=== PATIENT | female | born 1955 | race African-American/Black ===

== ENCOUNTER 2019-03-28 18:05 | Emergency (ER) | payer OTHER ==
[~2019-03-28] VITALS: Ht 170.2 cm; Wt 90.7 kg
[2019-03-28] MEDS ORDERED: MOBIC7.5 MG PO (19:39)
[2019-03-28] MEDS ORDERED: TRAMADOL 50 MG50 MG PO (20:00)
[2019-03-28] MEDS ORDERED: TEGRETOL XR200 MG PO (20:06)
[2019-03-28] MEDS ORDERED: GABAPENTIN 100100 MG (20:07)
[2019-03-28] MEDS ORDERED: FLONASE 0.05%50 MCG (20:07)
[2019-03-28] MEDS ORDERED: CRESTOR5 MG PO (20:07)
[2019-03-28] MEDS ORDERED: SERTRALINE HCL100 MG PO (20:07)
[2019-03-28] MEDS ORDERED: ZYRTEC10 M5 PO (20:07)
[2019-03-28] MEDS ORDERED: PREMPRO 0.3 MG1 EACH PO (20:08)
[2019-03-28 20:17] VITALS: BP 149/79
== END 2019-03-28 19:55 | disposition home or self-care (01) ==
LOC: ER 18:05
DX: S83.411A Sprain of medial collateral ligament of right knee, initial encounter (principal); M25.461 Effusion, right knee; F31.9 Bipolar disorder, unspecified; W18.39XA Other fall on same level, initial encounter; Y93.89 Activity, other specified; Y92.89 Other specified places as the place of occurrence of the external cause; Y99.8 Other external cause status

== ENCOUNTER 2019-04-01 14:50 | Inpatient (IN) | payer OTHER ==
[~2019-04-01] VITALS: Ht 170.2 cm; Wt 90.3 kg
--- NOTE | ~2019-04-01 | EMS ---
[facility] [address] [place] [address] EMS Patient Care Report Name: THEO PETERSON Room #: 523B-B ADM IN M.R.#: [id number] Admission: 04/01/19 Attend Phys: Hamzah Epps DO Discharge: Date of : 53 Report #: [id number] THIS REPORT FOR: //name// Report Transmitted: 04/02/2019 10:21 EMS Care Summary [place], [place]/[facility] Incident [id number] @ 04/01/2019 14:04 Incident Location [address] [place] [address] Patient THEO REED Female, 64 Years 1955 Patient Address [address] [place] [address] Patient History Bipolar II Disorder,Depression,Post Traumatic Stress Disorder (PTSD), Patient Allergies Adhesive Tape, Patient Medications Flonase, Neurontin, Zyrtec, Crestor, Sertraline, Gabapentin, Tegretol, Disposition Transported No Lights/[place] Dispatch Reason Psychiatric Problem/Abnormal Behavior/Suicide Attempt Transported To [facility] Narrative THE PATIENT WAS FOUND SITTING ON A BENCH ON THE FRONT POR[place] TALKING WITH POLICE. THE POLICE STATE THE PATIENT CALLED A CAREER SERVICES COORDINATOR WITH THE [facility] AND MADE STATEMENT ABOUT BEING "AT THE END OF HER ROPE" AND THREATENING TO WALK INTO TRAFFIC. THE PATIENT IS ALERT AND ORIENTED x4 AND MADE STATEMENTS TO EMS ABOUT IT "BEING BETTER IF SHE WAS ." THE PATIENT DENIES ANY OTHER COMPLAINTS. NO ABNORMALITIES WERE NOTED ON EXAM. NO CHANGES IN THE PATIENT'S CONDITION DURING TRANSPORT. THE PATIENT WAS MOVED TO [facility] [address] [place] [address] EMS Patient Care Report Name: THEO PETERSON Room #: 523B-B ADM IN M.R.#: [id number] Admission: 04/01/19 Attend Phys: Hamzah Epsp, DO Discharge: Date of : 53 Report #: [id number] BED 7 AT THE [facility] ER AND LEFT WITH THE SIDE RAILS UP AND LOCKED. CARE WAS TRANSFERRED TO THE ER NURSING STAFF. Initial Vitals @14:36P: 75,R: 16,BP: 131/74,CO: 5,SpO2: 98, @14:30P: 77,R: 18,BP: 135/83,Pain: 0/10,GCS: 15,CO: 2,SpO2: 99,Revised Trauma: 12, Assessments @14:19MENTAL:No Abnormalities,SKIN:No Abnormalities,HEENT:Head/Face: No Abnormalities,Eyes: No Abnormalities,Neck/Airway: No Abnormalities,LUNG SOUNDS:General: No Abnormalities,Left Upper: No Abnormalities,Right Upper: No Abnormalities,Left Lower: No Abnormalities,Right Lower: No Abnormalities,ABDOMEN:General: No Abnormalities,Left Upper: No Abnormalities,Right Upper: No Abnormalities,Left Lower: No Abnormalities,Right Lower: No Abnormalities,PELVIS//GI:No Abnormalities,EXTREMITIES:Left Arm: No Abnormalities,Right Arm: No Abnormalities,Left Leg: No Abnormalities,Right Leg: No Abnormalities,PULSE:Radial: 2+ Normal,NEURO:No Abnormalities, Impression Suicidal Ideation Procedures @14:19ALS AssessmentResponse: Unchanged Timeline 14:03,Call Received 14:03,Dispatch Notified 14:04,Dispatched 14:05,En Route 14:18,On Scene 14:19,At Patient 14:19,ALS Assessment,Response: Unchanged 14:30,BP: 135/83 M,PULSE: 77,RR: 18 R,SPO2: 99 Ox,ETCO2: ,BG: ,PAIN: 0,GCS: 15, 14:31,Depart Scene 14:36,BP: 131/74 M,PULSE: 75,RR: 16 R,SPO2: 98 Ox,ETCO2: ,BG: ,PAIN: ,GCS: , 14:46,At Destination 15:08,Call Closed Disclaimer v1.1 Copyright 2019 [employer] This EMS Care Summary contains data elements from the applicable legal record (which may be displayed differently). It is designed to provide pertinent information for the following purposes: continuity of care, clinical quality, and state data reporting. The complete legal record is available to ED staff and administrators of the receiving hospital in [employer]'s Patient Tracker. All data [facility] [address] [place] [address] EMS Patient Care Report Name: THEO PETERSON Room #: 523B-B ADM IN M.R.#: [id number] Admission: 04/01/19 Attend Phys: Hamzah Epps DO Discharge: Date of : 53 Report #: [id number] is provided "as is."
[~2019-04-01 14:50] MED LIST: CRESTOR5 MG PO; FLONASE 0.05%50 MCG; GABAPENTIN 100100 MG; MOBIC7.5 MG PO; PREMPRO 0.3 MG1 EACH PO; SERTRALINE HCL100 MG PO; TEGRETOL XR200 MG PO; TRAMADOL 50 MG50 MG PO; ZYRTEC10 M5 PO
[2019-04-01 14:51] VITALS: BP 134/77
[2019-04-01 15:53] LABS: URINE BILIRUBIN NEGATIVE (Negative); URINE BLOOD NEGATIVE (Negative); URINE CLARITY CLEAR; URINE COLOR YELLOW; URINE GLUCOSE-RANDOM* NEGATIVE (Negative); URINE KETONES NEGATIVE (Negative); URINE LEUKOCYTES-REFLEX NEGATIVE (Negative); URINE NITRITE-REFLEX NEGATIVE (Negative); URINE PROTEIN (DIPSTICK) NEGATIVE (Negative)
[2019-04-01 16:01] LABS: AMP/METHAMP Negative (Negative); BARBITURATES Negative (Negative); BENZODIAZEPINES Negative (Negative); COCAINE Negative (Negative); METHADONE Negative (Negative); OPIATES Negative (Negative); PCP Negative (Negative)
[2019-04-01 16:02] LABS: HEMATOCRIT 39.6 % (37.0-47.0); HEMOGLOBIN 13.9 gm/dL (12.0-15.0); MCV 94.2 fL (80.0-100.0); RBC 4.21 mil/uL (4.20-5.00); RDW 14.6 % (10.5-14.5); WBC 7.4 thou/uL (4.0-11.0)
[2019-04-01 16:10] LABS: ANION GAP 4 mmol/L (7-16); BUN 20 mg/dL (7-18); CALCIUM 9.4 mg/dL (8.5-10.1); CHLORIDE 106 mmol/L (98-107); CO2 29 mmol/L (21-32); CREATININE 0.9 mg/dL (0.6-1.0); GLUCOSE 102 mg/dL (74-106); POTASSIUM 4.2 mmol/L (3.5-5.1); SODIUM 139 mmol/L (136-145)
[2019-04-01 16:15] LABS: SALICYLATE 3.4 mg/dL (2.8-20.0)
[2019-04-01 21:53] VITALS: BP 141/84
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
[2019-04-02 08:00] VITALS: BP 117/62
[2019-04-02] MEDS ORDERED: NEURONTIN600 MG PO (10:15)
[2019-04-02] MEDS ORDERED: NABUMETONE 750750 M1 PO (10:15)
[2019-04-02] MEDS ORDERED: LEXAPRO 10 MG T10 M2 PO (10:17)
[2019-04-02] MEDS ORDERED: LEXAPRO20 MG PO (10:18)
--- NOTE | 2019-04-02 16:12 | NUR ---
PATIENT GIVEN PAIN MEDS PER ORDERS, REPORTS SOME RELIEF WITH MEDICATION. EXPRESSED THE NEED FOR MORE IMMOBILIZATION OF HER KNEE. PATIENT PROVIDED WITH WRAP TO RIGHT KNEE. APPROVED FOR USE BY SAMMY Winston NURSE INTERN BRAND FOR [facility] & DR. PROCTOR. PATIENT PARTICIPATED IN MOST OF GROUPS THIS SHIFT. MISSED FIRST GROUP DUE TO 30 MIN NAP. PATIENT UP TO DINING SALMON VISITING WITH OTHER PATIENTS THIS SHIFT. SPOKE WITH SISTER ON TELEPHONE. UPSET ABOUT HER DOG AFTER CONVERSATION. PATIENT DENIES ANY THOUGHTS OF SELF HARM THIS SHIFT. PATIENT CONTINUES TO USE WALKER, PHYSICAL THERAPY EVALUATED PATIENT. PATIENT MED REC OBTAINED FROM PHARMACY.
[2019-04-02 19:22] VITALS: BP 131/79
--- NOTE | 2019-04-03 03:28 | NUR ---
ASSUMED CARE @ 19:15, IN DAY ROOM SOCIALIZING WITH PEERS AND WATCHING TV. A&OX4, PLEASANT AFFECT, SMILING AND RESPONDING TO QUESTIONS WITH REASONABLE RESPONSES. HRRR, LUNGS CTA, ABD N X 4 Q. BM TODAY. PATIENT INDICATED THAT SHE WISHES TO PARTICIPATE IN GROUP THERAPY AND GET BETTER. 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 IN BED EYES CLOSED, RESPIRATIONS EVEN AND UNLABORED, BED IN LOW POSITION WITH ALARM SET. WILL CONTINUE TO MONITOR Q 12 MINUTES FOR PT SAFETY.
[2019-04-03 05:34] VITALS: BP 131/79
--- NOTE | 2019-04-03 06:14 | NUR ---
SLEPT 7.6 HOURS OVERNIGHT.
[2019-04-03 09:05] VITALS: BP 134/90
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
--- NOTE | 2019-04-03 11:46 | NUR ---
SW left a voicemail with pt sister vishal d/c. SW provided contact information in requested a call back.
[2019-04-03 12:43] VITALS: BP 134/90
--- NOTE | 2019-04-03 17:23 | NUR ---
ASSUMED CARE AT 0700 THIS MORNING. SHE WAS ON THE UNIT FOR MEALS, THEN IN AND OUT OF HER ROOM MOST OF THE MORNING. TALKED WITH DR. PROCTOR FOR A WHILE. SHE WAS ON THE UNIT FOR A PORTION OF THE MORNING GROUP. SHE RECEIVED A NEW NICOTINE PATCH WITH 0900 MEDS THIS MORNING. SHE WAS COOPERATIVE WITH TAKING HER MEDICATIONS TODAY WITHOUT DIFFICULTY. THE SPOT ON HER RIGHT ARM WHERE THE OLD PATCH HAD BEEN (SHE TOOK IT OFF HERSELF) WAS LIGHTLY IRRITATED. SHE HAS BEEN SITTING AT THE TABLE INTERACTING WITH PEERS. SHE WAS GIVEN THE NAME AND NUMBER TO THER [facility] DANNY WHITAKER-[phone]. SHE ATTEMPTED TO CALL THIS INDIVIDUAL TODAY.
[2019-04-03 20:06] VITALS: BP 114/74
--- NOTE | 2019-04-04 | NUR ---
Care assumed of patient at 1915: Patient reported right knee pain rated 6/10. Patient requested and was provided Aspercream topical to right knee. At one hour f/u, patient reported pain decreased to 3/10. Patient interactive, playing cards with peers. Smiling, happy. Denies SI/HI/AH/VH. No delusional or paranoia behaviors observed. Patient states that she will be getting her section 8 and is excited. Patient states that she has felt a burden living with her family and that takes a load off of her shoulders. Patient took HS medication without difficulty. Patient reports that she had a BM on 04/01/19 but reports feeling constipated. Bowel sounds active, abdomen soft/non-tender. Patient offered Milk of Magnesia and accepted dose. Patient ate 100% snack. Overall pleasant and cooperative this evening. Patient resting quietly in bed at this time.
[2019-04-04 09:15] VITALS: BP 112/54
[2019-04-04] MEDS ORDERED: TEGRETOL XR100 MG PO (13:21)
[2019-04-04 13:36] VITALS: BP 112/54
--- NOTE | 2019-04-04 13:44 | NUR ---
ASSUMED CARE AT 0700 THIS MORNING. PT. IN THE DINING ROOM INTERACTING WITH PEERS WHEN SHE GOT UP. WAS COOPERATIVE WITH TAKING MEDICATIONS. ATE ON THE UNIT AND ATTENDED GROUPS. IS CURRENTLY DENYING SI/HI AND AVH. SHE IS TALKING ABOUT WANTING TO TO HOME TODAY. STATED HE WOULD RELEASE HER THIS AFTERNOON. PT. BELONGINGS GATHERED, SCRIPTS WRITTEN.
[2019-04-04 13:46] VITALS: BP 112/54
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
--- NOTE | 2019-04-05 19:04 | D ---
[facility] [place] [address] DISCHARGE SUMMARY Name: THEO PETERSON Room #: 523B-B DIS IN M.R.#: [id number] Admission: 04/01/19 Attend Phys: Hamzah Epps DO Discharge: 04/04/19 Date of : 53 Report #: [id number] THIS REPORT FOR: //name// CC: Hamzah Epps FAM physician/PCP DATE OF SERVICE: 04/04/2019 INPATIENT PSYCHIATRIC DISCHARGE SUMMARY ATTENDING PHYSICIAN: Hamzah Epps DO. RN BONE MARROW TRANSPLANT: Bennett Estrada M.D. DISCHARGE DIAGNOSES: Bipolar 1 disorder, most recent episode depressed, moderate degree, improved. MEDICAL COMORBIDITIES: Include hyperlipidemia, stable on Crestor, recent fall with right knee pain. X-ray from 03/28/2019 negative. She received physical therapy and tramadol. Nicotine dependence. Urine drug screen positive for THC, so substance use disorder for cannabis mild. Borderline diabetes mellitus, chronic pain. DISCHARGE DISPOSITION: Discharged to her sister's home in [place], [place]. Psychiatric followup as follows: She will need to establish with [facility], such as [facility] at this time. DISCHARGE MEDICATIONS: As follows: Carbamazepine, Tegretol-XR 200 mg p.o. b.i.d. The patient was given 30-day prescription for this medication. She will be continuing on meloxicam 7.5 mg p.o. b.i.d. for inflammation, tramadol 50 mg p.o. q.6 p.r.n. for pain, ____ rosuvastatin calcium 5 mg p.o. daily for hyperlipidemia, cetirizine 10 mg p.o. daily for allergic rhinitis, Flonase nasal spray 0.05% two sprays each nostril daily, gabapentin 600 mg p.o. daily. We did elect to discontinue sertraline in this admission. Also turned out that the Tegretol level was a send out lab. The patient wished to discharge today due to taking care of her affairs and she can call for results and once she is established with a psychiatric provider, similarly she can notify medical records to have laboratory values sent. REASON FOR ADMISSION: As follows: A 64-year-old black female who presented to the ED via EMS with complaint of SI. EMS was called by the patient's "high school social studies teacher." This may be a worker from [facility]. They stated the patient is planning to walk into traffic. HOSPITAL COURSE: The patient was admitted to Geriatric Psychiatry Unit. [address] [address] DISCHARGE SUMMARY Name: THEO PETERSON Room #: 523B-B [facility] IN M.R.#: [id number] Admission: 04/01/19 Attend Phys: Hamzah Epps, Discharge: 04/04/19 Date of : 53 Report #: [id number] turned out that the patient had misunderstood, poorly communicated with her sister and thought she was going to "be put out on a street." This is not the case. The patient has been working diligently to obtain public housing and has an appointment in April in [place], [place], public housing which appears favorable. The patient also has lived most of her adult years in [place], [place] and is hoping to improve herself in [place]. There has been some problematic family relations including with the sister in [place], [place] who the patient found unhelpful and jeopardizing. Laboratory from this admission, CBC within normal. Blood sugars range 95-136 in the last 24 hours before discharge. Urinalysis negative. Urine toxicology had been positive for marijuana. Salicylate is 3.4. The carbamazepine level just resulted and it is 5.8, therapeutic range is generally 6-12, I target 9, so she is slightly subtherapeutic. We would probably increase her 100 mg per dose; however, this will need to be deferred to outpatient since she is discharged. PHYSICAL EXAMINATION: VITAL SIGNS: Temperature is 36.7, pulse 66, respirations 14, BP 112/54. MENTAL STATUS EXAMINATION: This is a well-developed, well-nourished black female, but disheveled, wearing hospital gown, intermittently using a walker. Attention intact. Concentration intact. Speech is normal in rate, volume, generally process is linear and goal directed. Thought content focused on discharge, getting her belongings. No psychomotor retardation, some psychomotor agitation. Denied SI or HI. Denied hopelessness, helplessness. Denied homicidal intent or plan. Denied suicidal intent or plan. Memory not formally tested on the day of discharge. Insight fair. Judgment fair. Fund of knowledge at least low average to average range. PROGNOSIS: For this patient is fair if she engages with [facility] provider, still wishes housing and thus is engaged in productive activities. <ELECTRONICALLY SIGNED> By: Hamzah Epps DO 04/05/19 [id number] Hamzah Epps DO /nt
== END 2019-04-04 16:33 | disposition home or self-care (01) | DRG 885 ==
LOC: ER 14:50 → SBH 19:20 → EROBS 19:20 → SBH 19:20
PROVIDERS: Emergency Medicine; ADMIT Psychiatry & Neurology Psychiatry
DX: F31.9 Bipolar disorder, unspecified (principal); R45.851 Suicidal ideations; F12.90 Cannabis use, unspecified, uncomplicated; E78.5 Hyperlipidemia, unspecified; F43.10 Post-traumatic stress disorder, unspecified; G89.29 Other chronic pain; R73.03 Prediabetes; Z86.19 Personal history of other infectious and parasitic diseases; Z79.899 Other long term (current) drug therapy
CPT/HCPCS: 10880